=== PATIENT | male | born 1955 | race Caucasian/White ===

== ENCOUNTER 2017-10-12 14:54 | Emergency (ER) | payer SELFPAY ==
--- NOTE | 2017-10-12 17:41 | Emergency Department Report ---
ED Psych HPI - General Chief Complaint: Skin Rash Stated Complaint: WANTS HEART CHECKED Time Seen by Provider: 10/12/17 17:26 Source: patient, EMS Mode of arrival: Ambulatory - History of Present Illness Initial Comments: Patient is 62 years old male, unknown to this provider and to the facility, patient came to the ER asking for EKG and urinalysis. Patient is disheveled with an unorganized thoughts and flights of ideas. Patient denied any chest pain, shortness of breath, cough or fever. When I asked him why does he need EKG he stated that last year he was took to a hospital in the [place] that he was told that he had heart attack but he did not have any symptoms. When asking about any psychiatric problem before he stated that he was thinking that he is bipolar or schizophrenic that nobody give him any diagnosis. He denied auditory hallucination or visual hallucination. He denies suicidal or homicidal ideation. MD Complaint: altered mental status - Related Data Previous Rx's Medication Instructions Recorded Last Taken Type Fluconazole [Diflucan TAB] 200 mg PO ONCE 1 Days #1 tablet 10/12/17 Unknown Rx Nystatin [Nyata] 15 gm TP Q8H 7 Days #1 powder 10/12/17 Unknown Rx Sulfamethoxazole/Trimethoprim 1 each PO BID 10 Days #20 tablet 10/12/17 Unknown Rx [Bactrim DS TAB] Allergies Allergy/AdvReac Type Severity Reaction Status Date / Time No Known Allergies Allergy Unverified 10/12/17 15:00 ED Review of Systems ROS: Stated complaint: WANTS HEART CHECKED Other details as noted in HPI Comment: Unobtainable due to pts medical conditions ED Past Medical Hx - Social History Smoking Status: Never Smoker Substance Use Type: None - Medications Home Medications: Home Medications Medication Instructions Recorded Confirmed Last Taken Type Fluconazole [Diflucan TAB] 200 mg PO ONCE 1 Days #1 tablet 10/12/17 Unknown Rx Nystatin [Nyata] 15 gm TP Q8H 7 Days #1 powder 10/12/17 Unknown Rx Sulfamethoxazole/Trimethoprim 1 each PO BID 10 Days #20 tablet 10/12/17 Unknown Rx [Bactrim DS TAB] ED Physical Exam - General Limitations: No Limitations General appearance: alert, in no apparent distress - Head Head exam: Present: normocephalic, normal inspection - ENT ENT exam: Present: normal exam, normal orophraynx, mucous membranes moist - Neck Neck exam: Present: normal inspection - Respiratory Respiratory exam: Present: normal lung sounds bilaterally. Absent: respiratory distress, wheezes, rales, chest wall tenderness - Cardiovascular Cardiovascular Exam: Present: regular rate, normal rhythm, normal heart sounds - GI/Abdominal GI/Abdominal exam: Present: soft, normal bowel sounds. Absent: distended, tenderness, guarding, rebound, rigid - Extremities Exam Extremities exam: Present: normal inspection - Neurological Exam Neurological exam: Present: alert, oriented X3, CN II-XII intact - Psychiatric Psychiatric exam: Absent: homicidal ideation, suicidal ideation ED Course Vital Signs 10/12/17 10/12/17 10/12/17 15:00 19:47 20:18 Temperature 98.2 F Pulse Rate 105 H 92 H 73 Respiratory 16 19 Rate Blood Pressure 101/61 Blood Pressure 106/66 [Left] O2 Sat by Pulse 97 99 Oximetry ED Medical Decision Making - Lab Data Result diagrams: 10/12/17 17:59 10/12/17 17:59 - Medical Decision Making Unable to obtain a detailed history from Mr. Keller. I believe this patient has some elements of psychiatric problem. Believe this patient needs further evaluation by our psychiatric team and possible social work consult. Critical care attestation.: If time is entered above; I have spent that time in minutes in the direct care of this critically ill patient, excluding procedure time. ED Disposition Clinical Impression: Intertrigo, Infection, skin Disposition: DC-01 TO HOME OR SELFCARE Is pt being admited?: No Condition: Stable Instructions: Cellulitis (ED), Tinea Corporis (ED) Additional Instructions: Please see discharge instruction in acute wound care Clean infected area twice daily and apply fungal powder to affected area 3 times a day Keep affected area clean and dry Take Diflucan as well as antifungal. Take Bactrim DS for infection Return to the emergency room if, he developed fever, chills, increased pain and drainage from site, nausea and vomited, increase in redness and/or weakness. Prescriptions: Fluconazole [Diflucan TAB] 200 mg PO ONCE 1 Days #1 tablet Nystatin [Nyata] 15 gm TP Q8H 7 Days #1 powder Sulfamethoxazole/Trimethoprim [Bactrim DS TAB] 1 each PO BID 10 Days #20 tablet Referrals: [facility] [Outside] - 2-3 ROBERT Sexton MD [Staff Physician] - 2-3 Days Forms: AMA Form
[2017-10-12 18:25] LABS: Basophils % (Auto) 0.2 % (0.0-1.8); Eosinophils # (Auto) 0.1 K/mm3 (0.0-0.4); Eosinophils % (Auto) 0.8 % (0.0-4.3); Hematocrit 38.5 % (35.5-45.6); Hemoglobin 13.2 gm/dl (11.8-15.2); Lymphocytes # (Auto) 2.2 K/mm3 (1.2-5.4); Lymphocytes % (Auto) 26.6 % (13.4-35.0); Mean Corpuscular HGB Conc 34 % (32-34); Mean Corpuscular Hemoglobin 30 pg (28-32); Mean Corpuscular Volume 88 fl (84-94); Monocytes # (Auto) 0.7 K/mm3 (0.0-0.8); Monocytes % (Auto) 9.1 % (0.0-7.3); Platelet Count 149 K/mm3 (140-440); Red Blood Count 4.39 M/mm3 (3.65-5.03); Red Cell Distribution Width 15.6 % (13.2-15.2)
[2017-10-12 18:44] LABS: Alanine Aminotransferase 23 units/L (7-56); BUN/Creatinine Ratio 20; Blood Urea Nitrogen 10 mg/dL (9-20); Hemolysis Index 2
--- NOTE | 2017-10-12 19:40 | Emergency Department Report ---
ED Rash HPI - HPI Chief Complaint: Skin Rash Stated Complaint: WANTS HEART CHECKED Time Seen by Provider: 10/12/17 17:26 Duration: 2 Days Location: Lower Extremities (left hip) Suspected Cause: Unknown Rash Symptoms: Yes Peeling (rash left hip), No Itching, No Facial Swelling, No Tongue/Oral Swelling, No Breathing Difficulties, No Choking Sensation, No Wheezing/Dyspnea, No Blistering, No Fever, No Lightheaded, No Malaise, No Myalgias Severity: moderate (5/10) Other History: This is 62-year-old male presented to emergency room complaining of rash to his left hip that is foul-smelling. He said this has gone on for 2 days. He denies any itching but reports pain at 5 out of 10. Pain is burning pain. He also reports that in January he might of had a heart attack and he would like to have that checked out. Patient refused EKG. His lab work was stable. Here for use urinalysis. He denies any chest pain or shortness of breath. Denies any cough nausea or vomiting. him but they report that he is mental health. Patient denies any mental health problem. He said he is here for his rash and sweaty wants to be checked out for. He is refuses in his temperature to be taken. Denies any abdominal or back pain. No medication taken for rash. He said he does not have a primary care doctor. No alleviating or exacerbating factors per patient. Tetanus vaccine is up-to- date. Patient states that he received tetanus shot 2 years ago. Patient is also refusing CT scan of the head. ED Review of Systems ROS: Stated complaint: WANTS HEART CHECKED Other details as noted in HPI Constitutional: denies: chills, fever Eyes: denies: eye pain, eye discharge, vision change ENT: denies: ear pain, throat pain, congestion Respiratory: denies: cough, shortness of breath, SOB with exertion, SOB at rest , stridor, wheezing Cardiovascular: denies: chest pain, palpitations, edema, syncope Gastrointestinal: denies: abdominal pain, nausea, vomiting, diarrhea Genitourinary: denies: urgency, dysuria Musculoskeletal: arthralgia. denies: back pain, joint swelling Skin: rash. denies: lesions Neurological: denies: headache, weakness ED Past Medical Hx - Past Medical History Previous Medical History?: Yes - Surgical History Past Surgical History?: No - Family History Family history: no significant - Social History Smoking Status: Never Smoker Substance Use Type: None - Medications Home Medications: Home Medications Medication Instructions Recorded Confirmed Last Taken Type Fluconazole [Diflucan TAB] 200 mg PO ONCE 1 Days #1 tablet 10/12/17 Unknown Rx Nystatin [Nyata] 15 gm TP Q8H 7 Days #1 powder 10/12/17 Unknown Rx Sulfamethoxazole/Trimethoprim 1 each PO BID 10 Days #20 tablet 10/12/17 Unknown Rx [Bactrim DS TAB] Rash Exam - Exam General: Vital signs noted. No distress. Alert and acting appropriately. This is a 62 male well-nourished well-developed here in no acute distress. He is nontoxic in appearance HEENT: No Periorbital Edema, No Conjuctival Injection, No Chemosis, No Perioral Edema, No Tongue Edema, No Uvular Edema, No Compromised Airway, No Drooling Lungs: Yes Good Air Exchange (CTAB), No Wheezes, No Ronchi, No Stridor, No Cough , No Labored Respirations, No Retractions, No Use of Accessory Muscles, No Other Abnormal Lung Sounds Heart: Yes Regular (S1 and S2, mild tachycardia at 105. Apical pulse of 92 bpm) , No Murmur Front/Back of Body, Lg (Color): 1 - moist, red-brown, beefy, homogenous patch within skin fold of left lower abdomen to groin. Loss of epidermis noted. Malodorous wit weeping. Skin: Yes Excoriations (moist, red-brown, beefy, homogenous patch within skin fold of left lower abdomen to groin), Yes Weeping (moist, red-brown, beefy, homogenous patch within skin fold of left lower abdomen to groin), Yes Tenderness (moist, red-brown, beefy, homogenous patch within skin fold of left lower abdomen to groin), Yes Erythema (moist, red-brown, beefy, homogenous patch within skin fold of left lower abdomen to groin. Malodorous with weeping) , Yes Other (moist, red-brown, beefy, homogenous patch within skin fold of left lower abdomen to groin), No Urticarial Rash, No Maculopapular Rash, No Morbilliform rash, No Bulla(e), No Edema, No Encrustations Other: Positive: Abdomen Normal (NTTP in all quadrants), Neurologic Normal ( alert and oriented 3, gait is steady. Speech is clear and fluid. GCS of 15), Musculoskeletal Normal (no clubbing, cyanosis or edema. +2 pulses to all extremities and no neurovascular compromise) ED Course Vital Signs 10/12/17 15:00 Pulse Rate 105 H Respiratory 16 Rate Blood Pressure 101/61 O2 Sat by Pulse 97 Oximetry Vital Signs 10/12/17 10/12/17 15:00 19:47 Pulse Rate 105 H 92 H Respiratory 16 Rate Blood Pressure 101/61 O2 Sat by Pulse 97 Oximetry - Reevaluation(s) Reevaluation #1: 10/12/17 20:03 Patient given clindamycin 600 mg IM in emergency room and Diflucan on one edge and 50 mg by mouth 1. He had no adverse reaction from medication. Patient refused his CT scan, temperature, urinalysis with urine drug screen and CT scan of the had. Sees signed AMA form. Reevaluation #2: 10/12/17 20:22 Patient also refused Diflucan on by mouth and clindamycin injection. He said it 's a psychotropic medication and were trying to do experiment on him ED Medical Decision Making - Lab Data Result diagrams: 10/12/17 17:59 10/12/17 17:59 Lab Results 10/12/17 10/12/17 10/12/17 Range/Units 17:59 17:59 17:59 WBC 8.2 (4.5-11.0) K/mm3 RBC 4.39 (3.65-5.03) M/mm3 Hgb 13.2 (11.8-15.2) gm/dl Hct 38.5 (35.5-45.6) % MCV 88 (84-94) fl MCH 30 (28-32) pg MCHC 34 (32-34) % RDW 15.6 H (13.2-15.2) % Plt Count 149 (140-440) K/mm3 Lymph % (Auto) 26.6 (13.4-35.0) % [place] % (Auto) 9.1 H (0.0-7.3) % Eos % (Auto) 0.8 (0.0-4.3) % Baso % (Auto) 0.2 (0.0-1.8) % Lymph # 2.2 (1.2-5.4) K/mm3 [place] # 0.7 (0.0-0.8) K/mm3 Eos # 0.1 (0.0-0.4) K/mm3 Baso # 0.0 (0.0-0.1) K/mm3 Seg Neutrophils % 63.3 (40.0-70.0) % Seg Neutrophils # 5.2 (1.8-7.7) K/mm3 Sodium 140 (137-145) mmol/L Potassium 3.9 (3.6-5.0) mmol/L Chloride 100.6 (98-107) mmol/L Carbon Dioxide 29 (22-30) mmol/L Anion Gap 14 mmol/L BUN 10 (9-20) mg/dL Creatinine 0.5 L (0.8-1.5) mg/dL Estimated GFR > 60 ml/min BUN/Creatinine Ratio 20 % Glucose 142 H (75-100) mg/dL Calcium 9.0 (8.4-10.2) mg/dL Total Bilirubin 0.50 (0.1-1.2) mg/dL AST 26 (5-40) units/L ALT 23 (7-56) units/L Alkaline Phosphatase 64 (35-129) units/L Troponin T (0.00-0.029) ng/mL Total Protein 6.7 (6.3-8.2) g/dL Albumin 4.0 (3.9-5) g/dL Albumin/Globulin Ratio 1.5 % Plasma/Serum Alcohol < 0.01 (0-0.07) % //18 Range/Units 17:59 WBC (4.5-11.0) K/mm3 RBC (3.65-5.03) M/mm3 Hgb (11.8-15.2) gm/dl Hct (35.5-45.6) % MCV (84-94) fl MCH (28-32) pg MCHC (32-34) % RDW (13.2-15.2) % Plt Count (140-440) K/mm3 Lymph % (Auto) (13.4-35.0) % [place] % (Auto) (0.0-7.3) % Eos % (Auto) (0.0-4.3) % Baso % (Auto) (0.0-1.8) % Lymph # (1.2-5.4) K/mm3 [place] # (0.0-0.8) K/mm3 Eos # (0.0-0.4) K/mm3 Baso # (0.0-0.1) K/mm3 Seg Neutrophils % (40.0-70.0) % Seg Neutrophils # (1.8-7.7) K/mm3 Sodium (137-145) mmol/L Potassium (3.6-5.0) mmol/L Chloride (98-107) mmol/L Carbon Dioxide (22-30) mmol/L Anion Gap mmol/L BUN (9-20) mg/dL Creatinine (0.8-1.5) mg/dL Estimated GFR ml/min BUN/Creatinine Ratio % Glucose (75-100) mg/dL Calcium (8.4-10.2) mg/dL Total Bilirubin (0.1-1.2) mg/dL AST (5-40) units/L ALT (7-56) units/L Alkaline Phosphatase (35-129) units/L Troponin T < 0.010 (0.00-0.029) ng/mL Total Protein (6.3-8.2) g/dL Albumin (3.9-5) g/dL Albumin/Globulin Ratio % Plasma/Serum Alcohol (0-0.07) % - Medical Decision Making This is a 62-year-old male here present in with rash to his left abdomen that started ongoing and reported odor. Patient said he is here to be treated. He was also complaining of other cardiac related issues to stated he had a heart attack in late January. Patient was ordered EKG which he refused. He refused CT scan of the head to the patient was asked in belligerent and aggressive. of ED and and Dr. Tran saw patient and proceeded to examine patient and he refused. I examined patient and found patient to have fungal infection with superimposed bacterial infection to his left abdomen extending down to his left groin. He had CBC and chemistry done which showed normal values and he had no elevation in white count. Patient wound was moist, malodorous, erosive with epidermis layer completely off, brownish red in color. With scant drainage. Patient refuses EKG. Troponin was normal. He refused CT scan of his head. Patient received clindamycin injection and also Diflucan tablet and said that he just wants to take his medication to go with him. I discussed diagnosis and treatment plan the patient and the importance of having an EKG and CT scan that was ordered by attending physician but he continued to refuse and became agitated. I discussed the patient that he will need to follow-up with primary care physician which he said he does not have one side told him he needs to follow up at [facility] to manage wound and he agrees. 1: Fungal infection-area cleansed with normal saline and Neosporin ointment placed the site. Patient ordered nystatin powder to use to side 3 times a day. I also instructed him that he needs to keep the area clean and dry. His also ordered Diflucan 200 mg by mouth 1 dose. 2: Cellulitis-patient ordered Bactrim DS S prescription and he refused clindamycin injection. He should educate medication, diagnosis, need to follow-up and acute wound care and he voiced understanding. Patient discharged home in stable condition, vital signs are stable he is afebrile and he is alert and cooperative. Discharged home to follow up at [facility] and to follow-up with dissolver operator Dr. lou in 2-3 days and if his wound get worse and he developed fever, increased odor, drainage and increased redness to return to the emergency room and he voiced understanding. Patient discharged home with Bactrim DS, nystatin powder and Diflucan on. - Differential Diagnosis cellulitis, abscess, fungal rash with superimposed bacterial infection. Critical care attestation.: If time is entered above; I have spent that time in minutes in the direct care of this critically ill patient, excluding procedure time. ED Disposition Clinical Impression: Intertrigo, Infection, skin Disposition: DC-01 TO HOME OR SELFCARE Is pt being admited?: No Does the pt Need Aspirin: No Condition: Stable Instructions: Cellulitis (ED), Tinea Corporis (ED) Additional Instructions: Please see discharge instruction in acute wound care Clean infected area twice daily and apply fungal powder to affected area 3 times a day Keep affected area clean and dry Take Diflucan as well as antifungal. Take Bactrim DS for infection Return to the emergency room if, he developed fever, chills, increased pain and drainage from site, nausea and vomited, increase in redness and/or weakness. Prescriptions: Fluconazole [Diflucan TAB] 200 mg PO ONCE 1 Days #1 tablet Nystatin [Nyata] 15 gm TP Q8H 7 Days #1 powder Sulfamethoxazole/Trimethoprim [Bactrim DS TAB] 1 each PO BID 10 Days #20 tablet Referrals: ROBERT LOU MD [Staff Physician] - 2-3 Days [facility] [Outside] - 2-3 Days Forms: AMA Form
[2017-10-12] MEDS ORDERED: CLEOCIN IM ONE (19:52)
[2017-10-12 20:19] VITALS: BP 106/66
[2017-10-12] MEDS ORDERED: DIFLUCAN PO ONE (21:00)
== END 2017-10-12 20:28 | disposition home or self-care (01) ==
LOC: ED 14:54
DX: L30.4 Erythema intertrigo (principal); R41.82 Altered mental status, unspecified
CPT/HCPCS: 36415; 80053; 84484; 85025; 99284; G0480; 80320